=== PATIENT | female | born 1965 | race Caucasian/White ===

== ENCOUNTER 2021-08-14 14:24 | Inpatient (IN) ==
[2021-08-14] MEDS ORDERED: Ondansetron ODT 4 MG TAB.RAPDIS SL PRN (16:33)
[2021-08-14] MEDS ORDERED: Naloxone 0.4 MG/ML INJ IVP PRN (16:33)
[2021-08-14] MEDS ORDERED: Mag Hydrox/Al Hydrox/Simeth 30 ML UDC PO PRN (16:33)
[2021-08-14] MEDS ORDERED: Acetaminophen 325 MG TABLET PO PRN (16:33)
[2021-08-14] MEDS ORDERED: MOM Conc 10 ML UD.LIQ PO PRN (16:33)
[2021-08-14] MEDS ORDERED: Dextrose 4 GM Chewable Tablets PO PRN ×2 (16:38)
[2021-08-14] MEDS ORDERED: *HR* Dextrose 50 % in Water (Syg) 50 ML SYRINGE IVP PRN (16:38)
[2021-08-14] MEDS ORDERED: D5% in Water 1,000 ML IVC PRN (16:38)
[2021-08-14] MEDS: Insulin LISPRO 300 UNITS/3 ML VIAL SUBQ SCH (20:44)
[2021-08-14] MEDS: Melatonin 3 MG TABLET PO PRN (22:39)
[2021-08-15 05:11] LABS: Hemoglobin 10.1 g/dL (11.5-15.4); Mean Corpuscular HGB Conc 32.6 g/dL (31.6-35.5); Mean Corpuscular Hemoglobin 28.4 pg (28.0-33.3); Mean Corpuscular Volume 87.1 fL (83.0-100.0); Mean Platelet Volume 10.3 fL (9.4-12.4); Platelet Count 260 K/mcL (140-400); Red Blood Count 3.56 M/mcL (3.82-4.97); Red Cell Distribution Width 14.1 % (11.5-14.5); White Blood Count 8.7 K/mcL (4.3-11.1)
[2021-08-15 05:32] LABS: BUN/Creatinine Ratio 36 (6-26); Blood Urea Nitrogen 20 mg/dL (6-20); Calcium 8.4 mg/dL (8.6-10.3); Carbon Dioxide 25 mEq/L (23-29); Chloride 108 mEq/L (98-107); Glucose 302 mg/dL (70-105); Magnesium 1.7 mg/dL (1.6-2.6); Osmolality,Calculated 298 (280-300); Potassium 4.1 mEq/L (3.5-5.1); Sodium 137 mEq/L (136-145); eGFR For African Americans > 60 (> 60); eGFR For Non-African Americans > 60 (> 60)
[2021-08-15 06:28] LABS: Estimated Average Glucose 217 mg/dl; Hemoglobin A1C 9.2 %
[2021-08-15] MEDS ORDERED: *HR* Enoxaparin 40 MG/0.4 ML SYRINGE SQ SCH (07:00)
[2021-08-15] MEDS ORDERED: Insulin LISPRO 300 UNITS/3 ML VIAL SUBQ SCH (07:30)
[2021-08-15] MEDS: Insulin LISPRO 300 UNITS/3 ML VIAL SUBQ SCH ×5 (08:29→21:55)
[2021-08-15] MEDS ORDERED: Lidocaine Viscous Oral Soln 15 ML SOLUTION MM PRN (08:37)
[2021-08-15] MEDS ORDERED: 0.9 % Sodium Chloride 500 ML IVC ONE (08:39)
[2021-08-15] MEDS ORDERED: Aspirin Enteric Coated 81 MG Tablet PO SCH (09:00)
[2021-08-15] MEDS: *HR* Midazolam HCl 5 MG/5 ML VIAL IVP PRN ×2 (09:20→09:25)
[2021-08-15] MEDS: *HR* FentaNYL (PF) 100 MCG/2 ML VIAL IVP PRN ×2 (09:20→09:25)
[2021-08-15] MEDS ORDERED: *HR* Heparin 5,000 UNIT/ML VIAL IVP PRN ×2 (10:45)
[2021-08-15] MEDS ORDERED: *HR* Heparin 5,000 UNIT/ML VIAL IVP ONE (10:45)
[2021-08-15 11:59] LABS: Hematocrit 32.3 % (35.3-44.9); Hemoglobin 10.8 g/dL (11.5-15.4); Mean Corpuscular HGB Conc 33.4 g/dL (31.6-35.5); Mean Corpuscular Hemoglobin 29.3 pg (28.0-33.3); Mean Corpuscular Volume 87.8 fL (83.0-100.0); Mean Platelet Volume 10.1 fL (9.4-12.4); Platelet Count 254 K/mcL (140-400); Red Blood Count 3.68 M/mcL (3.82-4.97); Red Cell Distribution Width 14.4 % (11.5-14.5); White Blood Count 9.2 K/mcL (4.3-11.1)
[2021-08-15] MEDS: Heparin 25,000UNIT/250ML 1/2NS 25,000 UNIT/250 ML IV.SOLN IVC SCH (12:08)
[2021-08-15 12:17] LABS: Heparin anti-factor XA UFH 0.46 IU/mL (0.30-0.70)
[2021-08-15 12:18] LABS: INR 1.1; Prothrombin Time 12.1 Seconds (9.4-12.1)
[2021-08-15] MEDS ORDERED: Milk and Molasses Enema 200 ML RC ONE (17:39)
[2021-08-15] MEDS ORDERED: *HR* Warfarin 3 MG TABLET PO ONE (18:00)
[2021-08-15] MEDS ORDERED: Warfarin perPT PO PRN (18:00)
[2021-08-16] MEDS: Insulin LISPRO 300 UNITS/3 ML VIAL SUBQ SCH ×7 (01:12→23:46)
[2021-08-16 08:22] LABS: Basophils % 0.3 %; Eosinophils # 0.2 K/mcL (0.0-0.6); Eosinophils % 1.4 %; Hemoglobin 10.7 g/dL (11.5-15.4); Immature Granulocytes % 0.4 % (0-4); Lymphocytes # 2.2 K/mcL (0.6-4.6); Lymphocytes % 17.8 %; Mean Corpuscular HGB Conc 32.4 g/dL (31.6-35.5); Mean Corpuscular Hemoglobin 28.3 pg (28.0-33.3); Mean Corpuscular Volume 87.3 fL (83.0-100.0); Mean Platelet Volume 9.9 fL (9.4-12.4); Monocytes # 0.7 K/mcL (0.0-1.3); Monocytes % 5.5 %; Neutrophils # 9.3 K/mcL (1.6-8.9); Platelet Count 267 K/mcL (140-400); Red Blood Count 3.78 M/mcL (3.82-4.97); Red Cell Distribution Width 14.3 % (11.5-14.5); Segmented Neutrophils % 74.6 %; White Blood Count 12.5 K/mcL (4.3-11.1)
[2021-08-16 08:25] LABS: INR 1.2
[2021-08-16 08:34] LABS: BUN/Creatinine Ratio 34 (6-26); Blood Urea Nitrogen 18 mg/dL (6-20); Calcium 8.7 mg/dL (8.6-10.3); Carbon Dioxide 25 mEq/L (23-29); Chloride 106 mEq/L (98-107); Glucose 246 mg/dL (70-105); Magnesium 1.6 mg/dL (1.6-2.6); Osmolality,Calculated 294 (280-300); Phosphorous 3.8 mg/dL (2.7-4.5); Potassium 3.8 mEq/L (3.5-5.1); Sodium 137 mEq/L (136-145); eGFR For African Americans > 60 (> 60); eGFR For Non-African Americans > 60 (> 60)
[2021-08-16] MEDS: Furosemide 20 MG TABLET PO SCH (10:00)
[2021-08-16] MEDS: lisinopriL 5 MG TABLET PO SCH (10:00)
[2021-08-16] MEDS: Famotidine 20 MG TABLET PO SCH ×2 (10:00→21:26)
[2021-08-16] MEDS: Insulin DETEMIR 100 UNIT/ML X5UNITS SUBQ SCH ×2 (10:00→21:25)
[2021-08-16] MEDS: amLODIPine 5 MG TABLET PO SCH (10:00)
[2021-08-16] MEDS: Heparin 25,000UNIT/250ML 1/2NS 25,000 UNIT/250 ML IV.SOLN IVC SCH ×2 (12:57→22:54)
[2021-08-16] MEDS ORDERED: *HR* Warfarin 4 MG TABLET PO ONE (18:00)
[2021-08-16] MEDS: Topiramate 25 MG TABLET PO SCH (21:26)
[2021-08-16] MEDS: traZODone 50 MG TABLET PO SCH (21:26)
[2021-08-16] MEDS: Melatonin 3 MG TABLET PO SCH (21:26)
[2021-08-17 02:55] LABS: Heparin anti-factor XA UFH 0.46 IU/mL (0.30-0.70)
[2021-08-17 03:17] LABS: INR 1.3; Prothrombin Time 14.5 Seconds (9.4-12.1)
[2021-08-17] MEDS: Insulin LISPRO 300 UNITS/3 ML VIAL SUBQ SCH ×3 (03:25→11:57)
[2021-08-17 03:36] LABS: Basophils % 0.3 %; Eosinophils # 0.3 K/mcL (0.0-0.6); Eosinophils % 2.5 %; Hematocrit 28.9 % (35.3-44.9); Hemoglobin 9.5 g/dL (11.5-15.4); Immature Granulocytes % 0.2 % (0-4); Lymphocytes # 2.9 K/mcL (0.6-4.6); Lymphocytes % 29.4 %; Mean Corpuscular HGB Conc 32.9 g/dL (31.6-35.5); Mean Corpuscular Hemoglobin 28.8 pg (28.0-33.3); Mean Corpuscular Volume 87.6 fL (83.0-100.0); Mean Platelet Volume 10.3 fL (9.4-12.4); Monocytes # 0.6 K/mcL (0.0-1.3); Neutrophils # 6.1 K/mcL (1.6-8.9); Platelet Count 256 K/mcL (140-400); Red Cell Distribution Width 14.4 % (11.5-14.5); Segmented Neutrophils % 61.6 %; White Blood Count 9.9 K/mcL (4.3-11.1)
[2021-08-17 03:53] LABS: BUN/Creatinine Ratio 34 (6-26); Blood Urea Nitrogen 24 mg/dL (6-20); Calcium 8.6 mg/dL (8.6-10.3); Carbon Dioxide 25 mEq/L (23-29); Chloride 106 mEq/L (98-107); Glucose 107 mg/dL (70-105); Magnesium 1.6 mg/dL (1.6-2.6); Osmolality,Calculated 289 (280-300); Potassium 3.3 mEq/L (3.5-5.1); Sodium 137 mEq/L (136-145); eGFR For African Americans > 60 (> 60); eGFR For Non-African Americans > 60 (> 60)
[2021-08-17] MEDS: lisinopriL 5 MG TABLET PO SCH (08:24)
[2021-08-17] MEDS: Furosemide 20 MG TABLET PO SCH (08:24)
[2021-08-17] MEDS: amLODIPine 5 MG TABLET PO SCH (08:24)
[2021-08-17] MEDS: Famotidine 20 MG TABLET PO SCH ×2 (08:24→20:31)
[2021-08-17] MEDS: Insulin DETEMIR 100 UNIT/ML X5UNITS SUBQ SCH ×2 (08:26→20:28)
[2021-08-17] MEDS ORDERED: *HR* Warfarin 5 MG TABLET PO ONE (18:00)
[2021-08-17] MEDS: Melatonin 3 MG TABLET PO SCH (20:30)
[2021-08-17] MEDS: Mirtazapine 15 MG TABLET PO SCH (20:31)
[2021-08-17] MEDS: Topiramate 25 MG TABLET PO SCH (20:33)
[2021-08-17] MEDS: traZODone 50 MG TABLET PO SCH (20:39)
[2021-08-18 01:49] LABS: Basophils % 0.3 %; Eosinophils # 0.2 K/mcL (0.0-0.6); Eosinophils % 2.5 %; Hematocrit 30.6 % (35.3-44.9); Hemoglobin 10.1 g/dL (11.5-15.4); Immature Granulocytes % 0.3 % (0-4); Lymphocytes # 2.6 K/mcL (0.6-4.6); Lymphocytes % 27.3 %; Mean Corpuscular Hemoglobin 28.8 pg (28.0-33.3); Mean Corpuscular Volume 87.2 fL (83.0-100.0); Monocytes # 0.5 K/mcL (0.0-1.3); Monocytes % 5.7 %; Neutrophils # 6.1 K/mcL (1.6-8.9); Platelet Count 245 K/mcL (140-400); Red Blood Count 3.51 M/mcL (3.82-4.97); Red Cell Distribution Width 14.1 % (11.5-14.5); Segmented Neutrophils % 63.9 %; White Blood Count 9.5 K/mcL (4.3-11.1)
[2021-08-18 01:56] LABS: INR 1.6
[2021-08-18 02:11] LABS: BUN/Creatinine Ratio 28 (6-26); Blood Urea Nitrogen 17 mg/dL (6-20); Calcium 8.6 mg/dL (8.6-10.3); Carbon Dioxide 26 mEq/L (23-29); Chloride 106 mEq/L (98-107); Glucose 169 mg/dL (70-105); Magnesium 1.8 mg/dL (1.6-2.6); Osmolality,Calculated 291 (280-300); Potassium 3.9 mEq/L (3.5-5.1); Sodium 138 mEq/L (136-145); eGFR For African Americans > 60 (> 60); eGFR For Non-African Americans > 60 (> 60)
[2021-08-18] MEDS: Heparin 25,000UNIT/250ML 1/2NS 25,000 UNIT/250 ML IV.SOLN IVC SCH (03:48)
[2021-08-18] MEDS: lisinopriL 5 MG TABLET PO SCH (10:24)
[2021-08-18] MEDS: Famotidine 20 MG TABLET PO SCH ×2 (10:24→20:04)
[2021-08-18] MEDS: amLODIPine 5 MG TABLET PO SCH (10:24)
[2021-08-18] MEDS: Furosemide 20 MG TABLET PO SCH (10:24)
[2021-08-18] MEDS: Sennosides/Docusate Sodium TABLET PO SCH ×2 (16:45→20:04)
[2021-08-18] MEDS: Insulin LISPRO 300 UNITS/3 ML VIAL SUBQ SCH (16:46)
[2021-08-18] MEDS: *HR* Enoxaparin 60 MG/0.6 ML SYRINGE SQ SCH (16:48)
[2021-08-18] MEDS ORDERED: *HR* Warfarin 5 MG TABLET PO ONE (18:00)
[2021-08-18] MEDS ORDERED: E-Z-HD (BARIUM SULF) SUSPENSION PO ONE (19:47)
[2021-08-18] MEDS ORDERED: E-Z-PAQUE (BARIUM SULF) SUSP 1 BOTTLE PO ONE (19:47)
[2021-08-18] MEDS: traZODone 50 MG TABLET PO SCH (20:04)
[2021-08-18] MEDS: Mirtazapine 15 MG TABLET PO SCH (20:04)
[2021-08-18] MEDS: Topiramate 25 MG TABLET PO SCH (20:04)
[2021-08-18] MEDS: Melatonin 3 MG TABLET PO PRN (20:05)
[2021-08-18] MEDS: Melatonin 3 MG TABLET PO SCH (20:06)
[2021-08-18] MEDS: Insulin DETEMIR 100 UNIT/ML X5UNITS SUBQ SCH (20:12)
[2021-08-19 02:12] LABS: INR 2.1; Prothrombin Time 23.2 Seconds (9.4-12.1)
[2021-08-19] MEDS: polyethylene glycoL 3350 17 GM POWD.PACK PO PRN (04:17)
[2021-08-19] MEDS: *HR* Enoxaparin 60 MG/0.6 ML SYRINGE SQ SCH (06:44)
[2021-08-19] MEDS: Insulin LISPRO 300 UNITS/3 ML VIAL SUBQ SCH ×3 (07:26→17:08)
[2021-08-19] MEDS: lisinopriL 5 MG TABLET PO SCH (09:26)
[2021-08-19] MEDS: Furosemide 20 MG TABLET PO SCH (09:26)
[2021-08-19] MEDS: Sennosides/Docusate Sodium TABLET PO SCH ×2 (09:26→20:52)
[2021-08-19] MEDS: Famotidine 20 MG TABLET PO SCH ×2 (09:26→20:52)
[2021-08-19] MEDS: amLODIPine 5 MG TABLET PO SCH (09:26)
[2021-08-19] MEDS ORDERED: *HR* Warfarin 5 MG TABLET PO ONE (18:00)
[2021-08-19] MEDS: Melatonin 3 MG TABLET PO SCH (20:52)
[2021-08-19] MEDS: Mirtazapine 15 MG TABLET PO SCH (20:53)
[2021-08-19] MEDS: Topiramate 25 MG TABLET PO SCH (20:53)
[2021-08-19] MEDS: traZODone 50 MG TABLET PO SCH (20:53)
[2021-08-19] MEDS: Insulin DETEMIR 100 UNIT/ML X5UNITS SUBQ SCH (21:16)
[2021-08-20 01:10] LABS: INR 2.6; Prothrombin Time 28.8 Seconds (9.4-12.1)
[2021-08-20 01:15] LABS: BUN/Creatinine Ratio 24 (6-26); Blood Urea Nitrogen 16 mg/dL (6-20); Calcium 8.7 mg/dL (8.6-10.3); Carbon Dioxide 27 mEq/L (23-29); Chloride 103 mEq/L (98-107); Glucose 177 mg/dL (70-105); Magnesium 1.8 mg/dL (1.6-2.6); Osmolality,Calculated 288 (280-300); Phosphorous 4.1 mg/dL (2.7-4.5); Sodium 136 mEq/L (136-145); eGFR For African Americans > 60 (> 60); eGFR For Non-African Americans > 60 (> 60)
[2021-08-20] MEDS: polyethylene glycoL 3350 17 GM POWD.PACK PO PRN (05:50)
[2021-08-20] MEDS: Insulin LISPRO 300 UNITS/3 ML VIAL SUBQ SCH ×3 (07:42→18:22)
[2021-08-20] MEDS: amLODIPine 5 MG TABLET PO SCH (08:02)
[2021-08-20] MEDS: Famotidine 20 MG TABLET PO SCH ×2 (08:02→20:22)
[2021-08-20] MEDS: lisinopriL 5 MG TABLET PO SCH (08:02)
[2021-08-20] MEDS: Sennosides/Docusate Sodium TABLET PO SCH ×2 (08:02→20:22)
[2021-08-20] MEDS: Furosemide 20 MG TABLET PO SCH (08:02)
[2021-08-20] MEDS: polyethylene glycoL 3350 17 GM POWD.PACK PO SCH (12:21)
[2021-08-20] MEDS ORDERED: *HR* Warfarin 5 MG TABLET PO ONE (18:00)
[2021-08-20] MEDS: Topiramate 25 MG TABLET PO SCH (20:22)
[2021-08-20] MEDS: traZODone 50 MG TABLET PO SCH (20:22)
[2021-08-20] MEDS: Melatonin 3 MG TABLET PO SCH (20:22)
[2021-08-20] MEDS: Mirtazapine 15 MG TABLET PO SCH (20:22)
[2021-08-20] MEDS: Insulin DETEMIR 100 UNIT/ML X5UNITS SUBQ SCH (20:27)
[2021-08-21 02:26] LABS: INR 2.3; Prothrombin Time 25.6 Seconds (9.4-12.1)
[2021-08-21 06:50] VITALS: O2SAT 97
[2021-08-21] MEDS: Insulin LISPRO 300 UNITS/3 ML VIAL SUBQ SCH ×2 (07:45→11:44)
[2021-08-21] MEDS: Sennosides/Docusate Sodium TABLET PO SCH (08:13)
[2021-08-21] MEDS: Furosemide 20 MG TABLET PO SCH (08:13)
[2021-08-21] MEDS: Famotidine 20 MG TABLET PO SCH (08:13)
[2021-08-21] MEDS: lisinopriL 5 MG TABLET PO SCH (08:13)
[2021-08-21] MEDS: polyethylene glycoL 3350 17 GM POWD.PACK PO SCH (08:14)
[2021-08-21] MEDS: amLODIPine 5 MG TABLET PO SCH (08:14)
[2021-08-21 10:39] VITALS: BP 109/71; PULSE 75; TEMP 97.7
[2021-08-21] MEDS ORDERED: *HR* Warfarin 5 MG TABLET PO ONE (18:00)
== END 2021-08-21 13:46 | DRG 65 ==
LOC: 3BNU → SUATTDRO 16:33
PROVIDERS: ADMIT Internal Medicine; ATTEND Internal Medicine

== ENCOUNTER 2021-11-29 13:24 | Inpatient (IN) ==
[2021-11-29] MEDS ORDERED: Melatonin 3 MG TABLET PO PRN (17:14)
[2021-11-29] MEDS ORDERED: Naloxone 0.4 MG/ML INJ IVP PRN (17:14)
[2021-11-29] MEDS ORDERED: MOM Conc 10 ML UD.LIQ PO PRN (17:14)
[2021-11-29] MEDS ORDERED: Mag Hydrox/Al Hydrox/Simeth 30 ML UDC PO PRN (17:14)
[2021-11-29] MEDS ORDERED: Ondansetron ODT 4 MG TAB.RAPDIS SL PRN (17:14)
[2021-11-29] MEDS ORDERED: D5% in Water 1,000 ML IVC PRN (17:19)
[2021-11-29] MEDS ORDERED: Dextrose Gel 15 GM/37.5 ML TUBE PO PRN ×2 (17:19)
[2021-11-29] MEDS ORDERED: *HR* Dextrose 50 % in Water (Syg) 50 ML SYRINGE IVP PRN (17:19)
[2021-11-29] MEDS: Insulin LISPRO 300 UNITS/3 ML VIAL SUBQ SCH ×2 (19:07→22:39)
[2021-11-30 01:35] LABS: Basophils % 0.4 %; Eosinophils # 0.4 K/mcL (0.0-0.6); Eosinophils % 3.5 %; Hematocrit 33.3 % (35.3-44.9); Hemoglobin 10.7 g/dL (11.5-15.4); Immature Granulocytes % 0.3 % (0-4); Lymphocytes # 2.6 K/mcL (0.6-4.6); Lymphocytes % 25.7 %; Mean Corpuscular HGB Conc 32.1 g/dL (31.6-35.5); Mean Corpuscular Hemoglobin 28.6 pg (28.0-33.3); Mean Platelet Volume 10.6 fL (9.4-12.4); Monocytes # 0.6 K/mcL (0.0-1.3); Monocytes % 6.3 %; Neutrophils # 6.5 K/mcL (1.6-8.9); Platelet Count 274 K/mcL (140-400); Red Blood Count 3.74 M/mcL (3.82-4.97); Red Cell Distribution Width 13.2 % (11.5-14.5); Segmented Neutrophils % 63.8 %; White Blood Count 10.2 K/mcL (4.3-11.1)
[2021-11-30 01:47] LABS: INR 4.1
[2021-11-30 01:49] LABS: Prothrombin Time 44.8 Seconds (9.4-12.1)
[2021-11-30 01:55] LABS: Calcium 8.6 mg/dL (8.6-10.3); Chol/HDL Ratio 3.6 (0-4.9); Potassium 3.7 mEq/L (3.5-5.1)
[2021-11-30] MEDS: Aspirin 81 MG TAB.CHEW PO SCH (08:24)
[2021-11-30] MEDS: Insulin LISPRO 300 UNITS/3 ML VIAL SUBQ SCH ×4 (08:24→20:53)
[2021-11-30] MEDS ORDERED: Gadolinium Contrast Agent (WT Based) IV PRN ×2 (09:52→11:33)
[2021-11-30] MEDS ORDERED: Piperacillin/Tazobactam 3.375 GM in 0.9 % Sodium Chloride Mini Bag 100 ML IVPB SCH (13:00)
[2021-11-30] MEDS: Piperacillin/Tazobactam 3.375 GM in 0.9 % Sodium Chloride Mini Bag 100 ML IVPB SCH ×2 (16:04→23:12)
[2021-12-01 05:44] LABS: INR 2.2; Prothrombin Time 24.4 Seconds (9.4-12.1)
[2021-12-01] MEDS: Piperacillin/Tazobactam 3.375 GM in 0.9 % Sodium Chloride Mini Bag 100 ML IVPB SCH (06:23)
[2021-12-01] MEDS: Aspirin 81 MG TAB.CHEW PO SCH (07:24)
[2021-12-01] MEDS ORDERED: Insulin DETEMIR 100 UNIT/ML X5UNITS SUBQ SCH (09:00)
[2021-12-01] MEDS ORDERED: Nicotine 21 MG PATCH.TD24 TD SCH (09:00)
[2021-12-01] MEDS: Insulin LISPRO 300 UNITS/3 ML VIAL SUBQ SCH ×2 (10:02→12:29)
[2021-12-01 10:29] VITALS: O2SAT 98
[2021-12-01 14:47] VITALS: BP 141/68; PULSE 92; TEMP 97.7
== END 2021-12-01 16:53 | disposition home or self-care (01) | DRG 65 ==
LOC: 3BNU → SUATTDRO 16:35
PROVIDERS: ADMIT Internal Medicine; ATTEND Registered Nurse

== ENCOUNTER 2021-12-12 10:41 | Observation (INO) ==
[2021-12-12] MEDS ORDERED: 0.9 % Sodium Chloride 1,000 ML ONE ×2 (11:45→13:27)
[2021-12-12] MEDS ORDERED: *HR* FentaNYL (PF) 100 MCG/2 ML VIAL ONE (13:26)
[2021-12-12] MEDS ORDERED: Heparin 1,000 UNITS/500 mL 500 ML ONE (13:27)
[2021-12-12] MEDS ORDERED: *HR* Heparin 10,000 UNIT/10 ML VIAL ONE (13:27)
[2021-12-12] MEDS ORDERED: Iopamidol - 300 100 ML INFUS..BTL ONE (13:27)
[2021-12-12] MEDS ORDERED: *HR* Midazolam HCl 2 MG/2 ML VIAL ONE (13:27)
[2021-12-12] MEDS ORDERED: Acetaminophen 325 MG TABLET PO PRN (14:56)
[2021-12-12] MEDS ORDERED: *HR* HYDROcodone/Acet 5/325 mg TABLET PO PRN (14:56)
[2021-12-12] MEDS ORDERED: Ondansetron 4 MG/2 ML VIAL IVP PRN (14:56)
[2021-12-12] MEDS ORDERED: *HR* Labetalol 20 MG/4 ML SYRINGE IVP ONE ×2 (16:29→16:32)
[2021-12-12] MEDS ORDERED: *HR* Labetalol 20 MG/4 ML SYRINGE IVP PRN (16:29)
[2021-12-12 17:47] VITALS: O2SAT 97
[2021-12-12 20:15] VITALS: BP 147/60; TEMP 97.5
[2021-12-12 21:03] VITALS: PULSE 91
== END 2021-12-12 21:07 | disposition home or self-care (01) ==
LOC: 2NNU 10:41 → INVDIALAB 10:41
PROVIDERS: ADMIT Surgery Vascular Surgery; ATTEND Surgery Vascular Surgery